=== PATIENT | female | born 1965 | race Hispanic/Latino ===

== ENCOUNTER 2016-10-13 14:04 | Emergency (ER) | payer BC ==
[2016-10-13 14:11] VITALS: BP 122/72; PULSE 56; RESP 18; TEMP 97.7; O2SAT 100
[2016-10-13] MEDS ORDERED: Fluorescein 1 mg Ophthalmic Strip ONE (14:34)
--- NOTE | 2016-10-13 14:49 | ED PDOC ---
HPI: Eye Injury/Pain Time Seen by Provider: 10/13/16 14:27 Chief Complaint (Nursing): Eye Problem History Per: Patient Additional Complaint(s): Pt. states earlier today she was attempting to put her contacts in her L eye when suddenly felt L eye pain. Pt. states she is uncertain if contact lens is still in the eye. Denies visual changes, trauma. Past Medical History Reviewed: Historical Data, Nursing Documentation, Vital Signs Vital Signs: Last Vital Signs Temp 97.7 F 10/13/16 14:10 Pulse 56 L 10/13/16 14:10 Resp 18 10/13/16 14:10 BP 122/72 10/13/16 14:10 Pulse Ox 100 10/13/16 14:10 - Family History Family History: States: No Known Family Hx - Home Medications Home Medications: Ambulatory Orders Medication Instructions Recorded Erythromycin 0.5% [Erythromycin] 1 applic LEFTEYE Q6 #1 tube 10/13/16 - Allergies Allergies/Adverse Reactions: Allergies Allergy/AdvReac Type Severity Reaction Status Date / Time No Known Allergies Allergy Verified 10/13/16 14:15 Review of Systems ROS Statement: Except As Marked, All Systems Reviewed And Found Negative Eyes: Positive for: Pain Physical Exam - Physical Exam Appears: Positive for: Well, Non-toxic, No Acute Distress Skin: Positive for: Normal Color, Warm. Negative for: Rash Eye Exam: Positive for: EOMI, PERRL, Conjunctival injection (L eye), Other (L eye with moderate conjunctival injection and fluoroscein uptake in infra corneal area; contact lens present). Negative for: Nystagmus, Periorbital swelling, Periorbital tenderness, Scleral icterus - ECG O2 Sat by Pulse Oximetry: 100 - Progress ED Course And Treament: L eye contact lens removed in tact without difficulty. Post removal examination revealed no abrasions to cornea but abrasions to infracornea area still present. Pt. reports complete relief of pain. Disposition - Clinical Impression Clinical Impression: Foreign body in eye, Conjunctival abrasion - Patient ED Disposition Is Patient to be Admitted: No - Disposition Referrals: Carlton Aparicio MD [Staff Provider] - Disposition: Routine/Home Disposition Time: 14:51 Condition: IMPROVED Additional Instructions: Do not use contact lenses until cleared you are cleared by your eye doctor. Prescriptions: Erythromycin 0.5% [Erythromycin] 1 applic LEFTEYE Q6 #1 tube Instructions: Eye Foreign Body (ED)
== END 2016-10-13 14:54 | disposition home or self-care (01) ==
LOC: H.ER 14:04
DX: T15.01XA Foreign body in cornea, right eye, initial encounter (principal)